=== PATIENT | male | born 1985 | race African-American/Black ===

== ENCOUNTER 2018-01-30 08:53 | Emergency (ER) | payer BC ==
[~2018-01-30] VITALS: Ht 200.7 cm; Wt 143.2 kg
[~2018-01-30 08:53] MED LIST: LORTAB 1010 MG PO; ULTRAM50 M1 OR
[2018-01-30 09:58] LABS: HEMATOCRIT 45.9 % (39.0-50.0); HEMOGLOBIN 15.7 g/dl (14.0-18.0); IMMATURE GRANULOCYTES 0.3 % (0.0-1.0); MEAN CELL VOLUME 91.4 fL CALC (80.0-100.0); MEAN CORPUSCULAR HGB 31.3 pG CALC (26.0-32.0); MEAN CORPUSCULAR HGB CONC 34.2 g/L CALC (32.0-36.0); NEUT# 4.12 thou/uL (1.82-7.42); RED BLOOD COUNT 5.02 mill/uL (4.70-6.10); RED CELL DISTRI WIDTH 13.9 % (11.5-15.5)
[2018-01-30 10:37] LABS: ALBUMIN 4.6 g/dL (3.2-5.0); ALKALINE PHOSPHATASE 51 u/l (38-126); ANION GAP 22 (6-22 (CALC)); BILIRUBIN, TOTAL 0.7 mg/dL (0.0-1.4); BUN 16 mg/dL (9-20); BUN/CREATININE RATIO 17 (12-20 (CALC)); CARBON DIOXIDE 23 mmol/l (22-30); CHLORIDE 104 mmol/l (95-108); GFR > 60 ML/MIN (>=60 (CALC)); GFR FOR AFR.AMER. > 60 ML/MIN (>=60 (CALC)); LIPASE 54 u/l (23-300); POTASSIUM 3.8 mmol/l (3.5-5.1); SGOT/AST 21 u/l (17-59); SGPT/ALT 36 u/l (21-72); SODIUM 144 mmol/l (137-146); TOTAL PROTEIN 7.5 g/dL (6.3-8.2)
[2018-01-30] MEDS ORDERED: ZOFRAN4 MG/TAB PO (13:05)
[2018-01-30] MEDS ORDERED: BENTYL10 MG PO (13:05)
[2018-01-30 13:38] VITALS: BP 112/62
== END 2018-01-30 13:30 | disposition home or self-care (01) | DRG 392 ==
LOC: ED 08:53
PROVIDERS: Emergency Medicine
DX: R11.10 Vomiting, unspecified (principal); R10.33 Periumbilical pain
CPT/HCPCS: Q9967

== ENCOUNTER 2018-09-10 09:44 | Emergency (ER) | payer BC ==
[~2018-09-10] VITALS: Ht 200.7 cm; Wt 145.5 kg
[~2018-09-10 09:44] MED LIST changes: +BENTYL10 MG PO; +ZOFRAN4 MG/TAB PO
[2018-09-10 10:11] LABS: HEMATOCRIT 43.6 % (39.0-50.0); HEMOGLOBIN 14.8 g/dl (14.0-18.0); IMMATURE GRANULOCYTES 0.3 % (0.0-5.0); MEAN CELL VOLUME 92.8 fL CALC (80.0-100.0); MEAN CORPUSCULAR HGB 31.5 pG CALC (26.0-32.0); MEAN CORPUSCULAR HGB CONC 33.9 g/L CALC (32.0-36.0); NEUT# 3.99 thou/uL (1.82-7.42); RED BLOOD COUNT 4.7 mill/uL (4.70-6.10)
[2018-09-10 10:42] LABS: ALBUMIN 4.6 g/dL (3.2-5.0); ALKALINE PHOSPHATASE 32 u/l (38-126); ANION GAP 14 (6-22 (CALC)); BILIRUBIN, TOTAL 0.7 mg/dL (0.0-1.4); BUN 16 mg/dL (9-20); BUN/CREATININE RATIO 17 (12-20 (CALC)); CARBON DIOXIDE 25 mmol/l (22-30); CHLORIDE 105 mmol/l (95-108); CPK 125 u/l (52-200); GFR > 60 ML/MIN (>=60 (CALC)); GFR FOR AFR.AMER. > 60 ML/MIN (>=60 (CALC)); LIPASE 174 u/l (23-300); POTASSIUM 4.5 mmol/l (3.5-5.1); SGOT/AST 23 u/l (17-59); SODIUM 140 mmol/l (137-146); TOTAL PROTEIN 7.8 g/dL (6.3-8.2)
[2018-09-10 15:16] LABS: BARBITURATES NEGATIVE (NEGATIVE); COCAINE NEGATIVE (NEGATIVE); METHADONE NEGATIVE (NEGATIVE); OXCYCODONE NEGATIVE (NEGATIVE); TETRAHYDROCANNABIONOL POSITIVE (NEGATIVE); TRICYLIC ANTIDEPRESSANTS NEGATIVE (NEGATIVE)
[2018-09-10] MEDS ORDERED: BENTYL10 MG PO (15:26)
[2018-09-10] MEDS ORDERED: ZOFRAN8 MG PO (15:26)
[2018-09-10 15:35] VITALS: BP 149/71
== END 2018-09-10 15:45 | disposition home or self-care (01) | DRG 392 ==
LOC: ED 09:44
PROVIDERS: Emergency Medicine
DX: R11.10 Vomiting, unspecified (principal); R10.84 Generalized abdominal pain; R05 Cough
CPT/HCPCS: Q9967

== ENCOUNTER 2019-07-17 13:05 | Emergency (ER) | payer OTHER, BC ==
[~2019-07-17] VITALS: Ht 200.7 cm; Wt 150.0 kg
[~2019-07-17 13:05] MED LIST changes: +ZOFRAN8 MG PO
[2019-07-17] MEDS ORDERED: ULTRAM50 M1 PO (15:11)
[2019-07-17 15:17] VITALS: BP 140/80
== END 2019-07-17 15:23 | disposition home or self-care (01) | DRG 552 ==
LOC: ED 13:05
DX: S33.5XXA Sprain of ligaments of lumbar spine, initial encounter (principal); V49.40XA Driver injured in collision with unspecified motor vehicles in traffic accident, initial encounter